=== PATIENT | male | born 1995 | race Caucasian/White ===

== ENCOUNTER 2016-06-11 17:41 | Emergency (ER) | payer MEDICAID ==
[~2016-06-11] VITALS: Ht 175.3 cm; Wt 72.6 kg
[~2016-06-11 17:41] MED LIST: FLAGYL 500MG.500 MG PO; MOBIC15 MG PO
[2016-06-11] MEDS ORDERED: CELEXA20 MG PO (17:50)
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
--- OUTSIDE RECORDS SUMMARY | 2016-06-11 17:51 | External Medical Summary Rpt ---
Demographics Preferred Language South African Marital Status Unknown Rastafari Affiliation Unknown Race Unknown Ethnic Group Unknown Author Author , Organization [employer] Address Unknown Phone Unavailable Purpose Continuity of Care Document - through 2016 Immunization No patient found.
--- OUTSIDE RECORDS SUMMARY | 2016-06-11 17:51 | External Medical Summary Rpt ---
Demographics Preferred Language Cymro Marital Status Unknown Gnosticism Affiliation Unknown Race Unknown Ethnic Group Unknown Author Author , Organization [employer] Address Unknown Phone Unavailable Purpose Continuity of Care Document - through 2016 Immunization No patient found.
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
--- OUTSIDE RECORDS SUMMARY | 2016-06-11 17:52 | External Medical Summary Rpt ---
Author Author [employer] Organization [employer] Address Unknown Phone Unavailable
[2016-06-11 18:37] LABS: URINE BILIRUBIN - DIPSTICK NEGATIVE (NEG); URINE BLOOD NEGATIVE (NEG)
--- NOTE | 2016-06-11 18:53 | Urgent Treatment Center Report ---
History of Present Issue Date/Time Seen by Provider 06/11/161817 Visit Reason Pt arrived:Walked Presenting Problem:PT STATES WEDNESDAY AND YESTERDAY HE WAS HAVING BURNING TO LOWER RIGHT SIDE. DENIES PAIN AT THIS TIME BUT STATES HE HAS HAD DIARRHEA TODAY. DENIES BURNING OR PAIN WITH URINATION. DENIES INJURY OR HEAVY LIFTING. DENIES HISTORY OF KIDNEY STONES Location if Accident: Onset of symptoms date/time:/ or onset unknown for:MEDICAL HX UNKNOWN Have you (or family members/close friends) recently traveled outside the [place]? N If Yes, where/when: Have you had exposure to infectious disease within the past month? TB? Other? Specify: Patient states that he had a burning sensation in his lower right side, states that today he has had some diarrhea but no burning or pain after diarrhea started. States that he has not had any pain or burning with urinating nor recently lifted anything heavy. ALLERGIES Coded Allergies: No Known Allergies (06/08/15) Home Medications Reported Medications CITALOPRAM HYDROBROMIDE (Citalopram HBr) 20 MG PO DAILY History Medical History General CAD? No Angina: No [place]: No Hypertension? No Hyperlipidemia? No CHF? No DVT? No PE? No COPD? No Asthma? No Anemia? No GERD? No Gastric ulcers? No GI Bleed? No Hernia? No Thyroid Problems? No Hypothyroidism? No CVA? No Seizures? No Diabetes? No Renal Insuffiency? No UTI? No Stones? No GB Disease: No Nephritic Syndrome? No Asplenia? No Hepatitis? No Sickle Cell Disease? No Arthritis? No Migraines? No Cataracts? No Glaucoma? No MRSA? No HIV? No TB? No Anxiety? No Depression? No Cancer? No More? No Immunization HX DT/Tetanus 1-4 Years Ago Surgical Hx Previous Surgery?Y CYST BEHIND RT EAR COLONOSCOPY Social History Smoking Hx Smoker: Never Smoker Tobacco: No Alcohol Alcohol: No Review of Systems All Other Systems Reviewed and Negative Comment Had burning in right lower abdomen 2 days ago, today has had diarrhea and not having any burning any more Physical Exam Vital Signs Vital Signs Date Time Temp Pulse Resp B/P Pulse O2 O2 Flow FiO2 Ox Delivery Rate 06/11 1748 98.0 100 20 131/87 100 General Appearance normal appearance, WD/WN, no apparent distress Respiratory Status Yes: trachea midline, chest symmetrical, non tender chest. No: respiratory distress. 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 No Results/Orders Laboratory Tests 06/11/161831: Urine Color YELLOW, Urine Appearance Clear, Urine pH 5.0, Ur Specific [place] 1.005, Urine Protein NEGATIVE, Urine Ketones NEGATIVE, Urine Blood NEGATIVE, Urine Nitrate NEGATIVE, Urine Bilirubin NEGATIVE, Urine Urobilinogen 0.2, Ur Leukocyte Esterase NEGATIVE, Urine Glucose NEGATIVE Orders Procedure Date/time Status [facility] URINE DIPSTICK 06/12 1831 Complete Departure Departure Time of Disposition 1847 Disposition DC Home or Self Care(routine) Clinical Impression Primary Impression: Viral diarrhea Condition STABLE Referrals NAYAN GALLARDO (Family): 2 Days-Call Office if no improvement or worsening of symptoms or if pain or burning returns Patient Instructions Diarrhea (Alternative Therapy), DIET-DIARRHEA NUTRITION [facility] Additional Instructions try very small amounts of water or suck on ice chips. diarrhea. children and infants should use products formulated for children, like oral rehydration solutions. Follow up with family doctor in 2-3 days if symptoms worsen or pain/burning returns Return to [facility] if needed Discharge Counseling Counseled pt/family regarding diagnosis, test results, home care, follow up needs at 1852
--- NOTE | 2016-06-11 18:53 | Urgent Treatment Center Report ---
History of Present Issue Date/Time Seen by Provider 06/11/161817 Visit Reason Pt arrived:Walked Presenting Problem:PT STATES WEDNESDAY AND YESTERDAY HE WAS HAVING BURNING TO LOWER RIGHT SIDE. DENIES PAIN AT THIS TIME BUT STATES HE HAS HAD DIARRHEA TODAY. DENIES BURNING OR PAIN WITH URINATION. DENIES INJURY OR HEAVY LIFTING. DENIES HISTORY OF KIDNEY STONES Location if Accident: Onset of symptoms date/time:/ or onset unknown for:MEDICAL HX UNKNOWN Have you (or family members/close friends) recently traveled outside the [place]? N If Yes, where/when: Have you had exposure to infectious disease within the past month? TB? Other? Specify: Patient states that he had a burning sensation in his lower right side, states that today he has had some diarrhea but no burning or pain after diarrhea started. States that he has not had any pain or burning with urinating nor recently lifted anything heavy. ALLERGIES Coded Allergies: No Known Allergies (06/08/15) Home Medications Reported Medications CITALOPRAM HYDROBROMIDE (Citalopram HBr) 20 MG PO DAILY History Medical History General CAD? No Angina: No [place]: No Hypertension? No Hyperlipidemia? No CHF? No DVT? No PE? No COPD? No Asthma? No Anemia? No GERD? No Gastric ulcers? No GI Bleed? No Hernia? No Thyroid Problems? No Hypothyroidism? No CVA? No Seizures? No Diabetes? No Renal Insuffiency? No UTI? No Stones? No GB Disease: No Nephritic Syndrome? No Asplenia? No Hepatitis? No Sickle Cell Disease? No Arthritis? No Migraines? No Cataracts? No Glaucoma? No MRSA? No HIV? No TB? No Anxiety? No Depression? No Cancer? No More? No Immunization HX DT/Tetanus 1-4 Years Ago Surgical Hx Previous Surgery?Y CYST BEHIND RT EAR COLONOSCOPY Social History Smoking Hx Smoker: Never Smoker Tobacco: No Alcohol Alcohol: No Review of Systems All Other Systems Reviewed and Negative Comment Had burning in right lower abdomen 2 days ago, today has had diarrhea and not having any burning any more Physical Exam Vital Signs Vital Signs Date Time Temp Pulse Resp B/P Pulse O2 O2 Flow FiO2 Ox Delivery Rate 06/11 1748 98.0 100 20 131/87 100 General Appearance normal appearance, WD/WN, no apparent distress Respiratory Status Yes: trachea midline, chest symmetrical, non tender chest. No: respiratory distress. 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 No Results/Orders Laboratory Tests 06/11/161831: Urine Color YELLOW, Urine Appearance Clear, Urine pH 5.0, Ur Specific [place] 1.005, Urine Protein NEGATIVE, Urine Ketones NEGATIVE, Urine Blood NEGATIVE, Urine Nitrate NEGATIVE, Urine Bilirubin NEGATIVE, Urine Urobilinogen 0.2, Ur Leukocyte Esterase NEGATIVE, Urine Glucose NEGATIVE Orders Procedure Date/time Status [facility] URINE DIPSTICK 06/12 1831 Complete Departure Departure Time of Disposition 1847 Disposition DC Home or Self Care(routine) Clinical Impression Primary Impression: Viral diarrhea Condition STABLE Referrals NAYAN GALLARDO (Family): 2 Days-Call Office if no improvement or worsening of symptoms or if pain or burning returns Patient Instructions Diarrhea (Alternative Therapy), DIET-DIARRHEA NUTRITION [facility] Additional Instructions try very small amounts of water or suck on ice chips. diarrhea. children and infants should use products formulated for children, like oral rehydration solutions. Follow up with family doctor in 2-3 days if symptoms worsen or pain/burning returns Return to [facility] if needed Discharge Counseling Counseled pt/family regarding diagnosis, test results, home care, follow up needs at 1857
[2016-06-11 18:54] VITALS: BP 131/87
== END 2016-06-11 18:56 | disposition home or self-care (01) ==
LOC: UTC 17:41
PROVIDERS: Nurse Practitioner
DX: R19.7 Diarrhea, unspecified (principal)